=== PATIENT | female | born 1995 | race Caucasian/White ===

== ENCOUNTER → 2019-10-03 | Outpatient (CLI) | payer BC ==
[~2019-10-03] MED LIST: NAPR-243 PO
--- NOTE | 2019-10-03 16:22 | Diagnostic Imaging Report ---
INDICATION: Fall with right ankle injury and pain. TIME OF EXAM: 4:10 p.m. FINDINGS: Three views of the right ankle were obtained. Alignment is normal. Ankle mortise is well maintained. Talar dome is smooth. No fracture or dislocation is seen. There is moderate soft tissue swelling about the lateral ankle. IMPRESSION: Lateral soft tissue swelling. No acute bony abnormality is detected. Dictated by: Dictated on workstation # [id number]
== END ==
LOC: RAD 15:56
PROVIDERS: ATTEND Nurse Practitioner Family
DX: S99.911A Unspecified injury of right ankle, initial encounter (principal); W19.XXXA Unspecified fall, initial encounter
CPT/HCPCS: 73610

== ENCOUNTER → 2019-10-26 | Outpatient (CLI) | payer BC ==
--- NOTE | 2019-10-26 17:10 | Diagnostic Imaging Report ---
EXAMINATION: Magnetic resonance imaging of the right ankle without contrast. DATE: October 26, 2019. COMPARISON: Right ankle radiographs October 03, 2019. HISTORY: 24-year-old female, fall. Right ankle pain. TECHNIQUE: Magnetic Resonance Imaging sequences were performed of the ankle without contrast. [< >] FINDINGS: TENDONS AND LIGAMENTS: The Achilles tendon is unremarkable. The posterior flexor tendons - tibialis posterior, flexor digitorum longus, flexor hallucis longus - are intact. The peroneal tendons - peroneus longus and peroneus brevis - are intact. The anterior extensor tendons - tibialis anterior, extensor hallucis longus and extensor digitorum longus tendons - are intact. The anterior and posterior syndesmotic ligaments are intact. There is marked thickening and increased signal in the anterior talofibular ligament consistent with a sprain injury. There is also a sprain injury of the calcaneofibular ligament. The posterior talofibular ligament is intact. The deep deltoid ligament is intact. The plantar fascia is intact. JOINTS: There is a small tibiotalar joint effusion. The subtalar and visualized joints of the mid-foot are intact. BONE: The bones all have normal configuration. There is edema-like signal in the region of the base of the medial malleolus without identified fracture line, most consistent with a bone contusion. There is also a bone contusion of the posterior aspect of the talus near the region of the attachment site of the posterior talofibular ligament. The talar dome is intact. BURSAE AND SOFT TISSUES: There is prominent lateral subcutaneous edema. IMPRESSION: 1. Sprain injuries of the anterior talofibular and calcaneofibular ligaments. Intact posterior talofibular ligament. 2. Intact deep deltoid ligament and syndesmotic ligaments. 3. Bone contusion of the base of the medial malleolus in the posterior and lateral talus near the expected attachment site of the posterior talofibular ligament. 4. No acute fracture. Intact talar dome. 5. Intact tendons. Dictated by: Dictated on workstation # [id number]
== END ==
LOC: RAD 14:26
PROVIDERS: ATTEND Nurse Practitioner Family
DX: S93.491A Sprain of other ligament of right ankle, initial encounter (principal); S80.11XA Contusion of right lower leg, initial encounter; W19.XXXA Unspecified fall, initial encounter
CPT/HCPCS: 73721

== ENCOUNTER → 2022-07-12 | Outpatient (CLI) | payer BC, OTHER ==
--- NOTE | 2022-07-12 14:25 | Diagnostic Imaging Report ---
PROCEDURE: Pelvic comp/transvaginal sonogram. TECHNIQUE: Complete transabdominal and transvaginal pelvic ultrasound was performed. In addition, limited pelvic Doppler was performed. INDICATION: Excessive and frequent menstruation. Uterus is anteverted measuring 8.1 x 4.2 x 4.47 m. Endometrium is 5 mm in thickness. No myometrial masses detected. Right ovary measures 2.0 x 1.0 x 1.8 cm and the left ovary measures 2.6 x 1.4 x 1.3 cm. No adnexal mass or free fluid is detected. IMPRESSION: Unremarkable transabdominal and transvaginal pelvic ultrasound. Dictated by: Dictated on workstation # [id number]
== END ==
LOC: RAD 12:08
PROVIDERS: ATTEND Internal Medicine
DX: N92.1 Excessive and frequent menstruation with irregular cycle (principal)
CPT/HCPCS: 76830; 76856

== ENCOUNTER 2022-08-06 08:42 | Outpatient (RCR) | payer OTHER ==
[2022-07-28 08:46] VITALS: BP 100/81
[2022-07-28] MEDS: IRON SUCROSE 200 MG/10 ML (VENOFER) VIAL IV SCH (08:55)
[2022-07-30 08:40] VITALS: BP 115/72
[2022-07-30] MEDS: IRON SUCROSE 200 MG/10 ML (VENOFER) VIAL IV SCH (08:50)
[2022-08-02 08:55] VITALS: BP 122/80
[2022-08-02] MEDS: IRON SUCROSE 200 MG/10 ML (VENOFER) VIAL IV SCH (09:01)
[2022-08-04] MEDS: IRON SUCROSE 200 MG/10 ML (VENOFER) VIAL IV SCH (08:58)
[2022-08-04 09:24] VITALS: BP 120/73
[~2022-08-06] VITALS: Ht 180 cm; Wt 70.0 kg
[2022-08-06] MEDS ORDERED: IRON SUCROSE 200 MG/10 ML (VENOFER) VIAL IV SCH (09:00)
[2022-08-06 09:07] VITALS: BP 120/73
== END 2022-08-13 | disposition home or self-care (01) ==
LOC: SDC 08:42
PROVIDERS: ATTEND Internal Medicine
DX: E61.1 Iron deficiency (principal)
CPT/HCPCS: 96365

== ENCOUNTER → 2023-06-16 | Outpatient (CLI) | payer OTHER ==
[~2023-06-16] VITALS: Ht 180.3 cm; Wt 70.0 kg
[~2023-06-16] MED LIST changes: +IRON DEXTRAN 1,000 MG/NS 250 ML IVPB IV ONE; +IRON DEXTRAN 25 MG/NS 6.25 ML TOTAL VOLUME IV ONE; +IRON SUCROSE 200 MG/10 ML (VENOFER) VIAL IV SCH
[2023-06-16 09:44] VITALS: BP 119/74
== END ==
LOC: SDC 08:57
PROVIDERS: ATTEND Internal Medicine
DX: E61.1 Iron deficiency (principal)
CPT/HCPCS: 96365

== ENCOUNTER 2023-06-27 09:15 | Outpatient (RCR) | payer OTHER ==
[2023-06-20 09:15] VITALS: BP 115/77
[2023-06-20] MEDS: IRON SUCROSE 200 MG/10 ML VIAL IV SCH (09:26)
[2023-06-22 09:15] VITALS: BP 111/78
[2023-06-22] MEDS: IRON SUCROSE 200 MG/10 ML VIAL IV SCH (09:48)
[2023-06-24 09:00] VITALS: BP_SYST 116; BP_SYST 120; BP_DIAS 78; BP_DIAS 84
[2023-06-24] MEDS: IRON SUCROSE 200 MG/10 ML VIAL IV SCH (09:15)
[~2023-06-27 09:15] MED LIST changes: -IRON DEXTRAN 1,000 MG/NS 250 ML IVPB IV ONE; -IRON DEXTRAN 25 MG/NS 6.25 ML TOTAL VOLUME IV ONE; -IRON SUCROSE 200 MG/10 ML (VENOFER) VIAL IV SCH
[2023-06-27 09:30] VITALS: BP 120/84
[2023-06-27] MEDS: IRON SUCROSE 200 MG/10 ML VIAL IV SCH (09:31)
== END 2023-07-14 | disposition home or self-care (01) ==
LOC: SDC 09:15
PROVIDERS: ATTEND Internal Medicine
DX: D64.9 Anemia, unspecified (principal)
CPT/HCPCS: 96365

== ENCOUNTER → 2023-09-08 | Outpatient (CLI) | payer OTHER ==
--- NOTE | 2023-09-08 10:20 | Diagnostic Imaging Report ---
PROCEDURE: Pelvic comp/transvaginal sonogram. TECHNIQUE: Complete transabdominal and transvaginal pelvic ultrasound was performed. In addition, limited pelvic Doppler was performed. INDICATION: Evaluate IUD placed in June 2023. Uterus is anteverted measuring 8.5 x 3.5 x 5.2 cm. Endometrium is 4 mm in thickness. The IUD appears to be centered in the endometrial canal. No myometrial mass is identified. Right ovary measures 3.2 x 2.7 x 2.8 cm and the left ovary measures 1.6 x 0.9 x 1.7 cm. Both ovaries demonstrate blood flow. No adnexal mass or free fluid is detected. IMPRESSION: The IUD appears to be centered in the endometrial canal. No abnormality is detected. Dictated by: Dictated on workstation # [id number]
== END ==
LOC: RAD 08:40
PROVIDERS: ATTEND Internal Medicine
DX: Z30.430 Encounter for insertion of intrauterine contraceptive device (principal)
CPT/HCPCS: 76830; 76856